=== PATIENT | female | born 1985 | race Caucasian/White ===

== ENCOUNTER 2018-04-17 23:42 | Emergency (ER) | payer OTHER ==
[2018-04-17] MEDS ORDERED: SODIUM CHLORIDE 1,000 ML IV STA (23:52)
[2018-04-18 01:48] VITALS: BP 100/64; PULSE 84; TEMP 98.6; BMI 23.0
--- NOTE | 2018-04-18 01:57 | PDOC ---
History of Present Illness - General Chief Complaint: Vaginal Bleeding Stated Complaint: Vaginal Bleeding/ 11 WEEKS Time Seen by Provider: 04/18/18 01:54 History Source: Patient - History of Present Illness Initial Comments: 04/18/18 05:10 32-year-old female G3 P 2 complaining of vaginal bleeding since 11 PM soaking through 1 pad since bleeding started. Denies pelvic pain or cramps at this time patient is continued to pass clots. Denies urinary symptoms, abdominal pain Past History - Past Medical History Allergies/Adverse Reactions: Allergies Allergy/AdvReac Type Severity Reaction Status Date / Time No Known Allergies Allergy Verified 04/18/18 01:36 Home Medications: Ambulatory Orders NK [No Known Home Medication] 04/18/18 Anemia: No Asthma: No Cancer: No Cardiac Disorders: No COPD: No Diabetes: No HTN: No Seizures: No Thyroid Disease: No - Surgical History Appendectomy: Yes - Suicide/Smoking/Psychosocial Hx Smoking Status: No Smoking History: Never smoked Have you smoked in the past 12 months: No Number of Cigarettes Smoked Daily: 0 Information on smoking cessation initiated: No Hx Alcohol Use: No Drug/Substance Use Hx: No Substance Use Type: None Hx Substance Use Treatment: No Review of Systems - Review of Systems Able to Perform ROS?: Yes Is the patient limited Icelandic proficient: No Constitutional: No: Symptoms Reported, See HPI, Chills, Diaphoresis, Fever, Loss of Appetite, Malaise, Night Sweats, Weakness, Weight Stable, Unintentional Wgt. Loss, Unexplained wgt Loss, Other : Yes: Other (vaginal bleeding) *Physical Exam - Vital Signs Last Vital Signs Temp Pulse Resp BP Pulse Ox 98.6 F 84 18 100/64 99 04/18/18 01:38 04/18/18 01:38 04/18/18 01:38 04/18/18 01:38 04/18/18 01:38 - Physical Exam General Appearance: Yes: Appropriately Dressed Female Pelvic Exam: positive: normal external exam, cervical os closed, vaginal bleeding ( with clots in vault), other (no pelvic tenderness) Gastrointestinal/Abdominal: positive: Normal Bowel Sounds, Soft Extremity: positive: Normal Capillary Refill, Normal Inspection, Normal Range of Motion Integumentary: positive: Normal Color, Dry, Warm Neurologic: positive: Fully Oriented, Alert, Normal Mood/Affect ED Treatment Course - LABORATORY CBC & Chemistry Diagram: 04/18/18 03:20 04/18/18 03:20 - RADIOLOGY Radiograph Interpretation: 04/18/18 01:56 TVUS: FINDINGS: Ultrasound :Uterus is anteverted and measures 13.6centimeters in length. There is a twin live IUP. Fetus A demonstrates estimated gestational age of 11weeks and 5days with a normal heart rate of 158beats per minute. Fetus B demonstrates estimated gestational age of 12 weeks zero days abnormal heart rate of 146 beats per minute There is a small anterior subchorionic bleed. The right ovary measures 3.1centimeters in length and appears normal. The left ovary measures 3.6centimeters in length and appears normal. There is no significant free fluid.Pelvic duplex: There is normal arterial and venous flow both ovaries. Progress Note - Progress Note Progress Note: A: vaginal bleeding in P: cbc cmp UA beta HCG TVUS Medical Decision Making - Medical Decision Making I spoke to dR Davis. reviewed US report and labs. recommends outpatient follow up in 2 weeks in the clinic with strict return precautions. *DC/Admit/Observation/Transfer Diagnosis at time of Disposition: Vaginal bleeding affecting early Subchorionic hemorrhage in first trimester Qualifiers: Fetus number: fetus 2 of multiple gestation Qualified Code(s): O41.8X12 - Other specified disorders of amniotic fluid and membranes, first trimester, fetus 2 - Discharge Dispostion Disposition: HOME - Referrals Referrals: Mariaa Pitt MD [Primary Care Provider] - 2 Days - Patient Instructions Printed Discharge Instructions: Vaginal Bleeding During Additional Instructions: Drink plenty of fluids. Return to the emergency room if you're soaking through 2 pads per hour, severe abdominal pain, nausea, vomiting, fevers/chills or worsening symptoms Follow-up with an ASSEMBLY PERSON in 1-2 weeks. - Post Discharge Activity
[2018-04-18 03:37] LABS: BASO % 0.7 % (0-2.0); EOS % 1.4 % (0-4.5); HEMATOCRIT 32.7 % (32.4-45.2); LYMPH % 18.5 % (8-40); MCHC 33.8 g/dl (32.0-36.0); MEAN CELL VOLUME 91.7 fl (80-96); MEAN PLT VOLUME 8.9 fl (7.5-11.1); MONO % 4.9 % (3.8-10.2); NEUT % 74.5 % (42.8-82.8); PLATELET COUNT 291 K/MM3 (134-434); RBC 3.56 M/mm3 (3.60-5.2); RDW 13.4 % (11.6-15.6); WHITE BLOOD COUNT 9.7 K/mm3 (4.0-10.0)
[2018-04-18 03:50] LABS: PROTHROMBIN TIME (PATIENT) 11.3 SEC (9.7-13.0)
[2018-04-18 05:30] LABS: URINE APPEARANCE CLEAR; URINE BILIRUBIN NEGATIVE (<2.0 mg/dL); URINE COLOR STRAW; URINE GLUCOSE (UA) NEGATIVE (NEGATIVE); URINE KETONE NEGATIVE (NEGATIVE); URINE LEUK ESTERASE NEGATIVE (NEGATIVE); URINE NITRITE NEGATIVE (NEGATIVE); URINE PROTEIN NEGATIVE (NEGATIVE); URINE UROBILINOGEN NEGATIVE mg/dL (0.2-1.0)
[2018-04-18 05:44] LABS: ALBUMIN 3.2 g/dl (3.4-5.0); ANION GAP 9 MMOL/L (8-16); BLOOD UREA NITROGEN 11 mg/dL (7-18); CALCIUM 8.8 mg/dL (8.5-10.1); CHLORIDE 105 mmol/L (98-107); CO2 24 mmol/L (21-32); GLUCOSE,RANDOM 82 mg/dL (74-106); POTASSIUM 4.3 mmol/L (3.5-5.1); SODIUM 138 mmol/L (136-145)
[2018-04-18 05:48] LABS: BILIRUBIN,TOTAL 0.2 mg/dL (0.2-1.0); CREATININE 0.3 mg/dL (0.55-1.02); SGOT/AST 15 U/L (15-37); SGPT/ALT 21 U/L (12-78); TOT PROT 7.1 g/dl (6.4-8.2)
[2018-04-18 05:49] LABS: ALK PHOS 71 U/L (45-117)
[2018-04-18 05:55] LABS: URINE MUCUS RARE
== END 2018-04-18 06:07 | disposition home or self-care (01) ==
LOC: JER 23:42
PROC: 3E0337Z Introduction of Electrolytic and Water Balance Substance into Peripheral Vein, Percutaneous Approach (ICD-10-PCS; principal; 2018-04-17)
DX: O30.001 Twin pregnancy, unspecified number of placenta and unspecified number of amniotic sacs, first trimester (principal); O41.8X12 Other specified disorders of amniotic fluid and membranes, first trimester, fetus 2; Z3A.12 12 weeks gestation of pregnancy; N93.9 Abnormal uterine and vaginal bleeding, unspecified
CPT/HCPCS: 36415; 76801-TC; 80053; 81003; 81015; 84702; 85025; 85610; 86850; 86900; 86901; 87086; 99283-25; J7030

== ENCOUNTER 2018-11-19 10:41 | Emergency (ER) | payer OTHER ==
[2018-11-19 11:02] VITALS: BP 109/62; PULSE 67; TEMP 99.1; BMI 22.2
--- NOTE | 2018-11-19 11:43 | PDOC ---
History of Present Illness - General Chief Complaint: Wound Stated Complaint: WOUND Time Seen by Provider: 11/19/18 11:03 - History of Present Illness Initial Comments: 11/19/18 11:38 33-year-old female presents for evaluation of a wound check a that was done at the end of September she states last week and she noticed a little area of opening on the wound with clear drainage she went to her doctor who applied a Steri-Strip she now states the opening is bigger she called her doctor and she was told to come to the emergency room. She has no systemic symptoms. No comorbidities. Past History - Past Medical History Allergies/Adverse Reactions: Allergies Allergy/AdvReac Type Severity Reaction Status Date / Time No Known Allergies Allergy Verified 11/19/18 10:57 Home Medications: Ambulatory Orders Docusate Sodium [Dulcolax Stool Softener] 100 mg PO ASDIR 11/19/18 Anemia: No Asthma: No Cancer: No Cardiac Disorders: No COPD: No Diabetes: No HTN: No Seizures: No Thyroid Disease: No - Surgical History Appendectomy: Yes - Reproductive History (#): 2 Para: 1 - Suicide/Smoking/Psychosocial Hx Smoking Status: No Smoking History: Never smoked Have you smoked in the past 12 months: No Number of Cigarettes Smoked Daily: 0 Hx Alcohol Use: No Drug/Substance Use Hx: No Substance Use Type: None Hx Substance Use Treatment: No Review of Systems - Review of Systems Constitutional: No: Fever Integumentary: Yes: See HPI. No: Erythema *Physical Exam - Vital Signs Last Vital Signs Temp Pulse Resp BP Pulse Ox 99.1 F 67 16 109/62 99 11/19/18 11:00 11/19/18 11:00 11/19/18 11:00 11/19/18 11:00 11/19/18 11:00 - Physical Exam Comments: 11/19/18 11:39 The incision from the is well-healed. There is a small subcentimeter area on the left lateral aspect of the incision which appears to be circular without purulent drainage. There is granulation noted. Normal surrounding skin color and temperature without indication of secondary infection. Medical Decision Making - Medical Decision Making 11/19/18 11:40 This may represent of Vicryl reaction. There is no indication of infection. Patient is afebrile has no systemic symptoms. Temperature from triage was not accurate. She has a temperature of 98 in fast track. I've advised to keep the area clean with soap and water and left open to air. Return to the emergency room for worsening symptoms and follow-up with her operating surgeon for further evaluation and treatment options. *DC/Admit/Observation/Transfer Diagnosis at time of Disposition: Wound dehiscence - Discharge Dispostion Disposition: HOME Condition at time of disposition: Stable Decision to Admit order: No - Referrals - Patient Instructions Additional Instructions: As discussed please wash the wound with soap and water and leave it open to air. Return to the emergency room for worsening symptoms and follow-up with your operating surgeon in the next 1-2 days for further evaluation and treatment options. - Post Discharge Activity
== END 2018-11-19 12:02 | disposition home or self-care (01) ==
LOC: JERFT 10:41
DX: O90.0 Disruption of cesarean delivery wound (principal)
CPT/HCPCS: 99281-25